=== PATIENT | female | born 1935 | race African-American/Black ===

== ENCOUNTER 2020-08-31 19:01 | Inpatient (IN) | payer OTHER ==
[~2020-08-31] VITALS: Ht 160 cm; Wt 82.1 kg
--- NOTE | ~2020-08-31 | EMS ---
[facility] [address] [place] [address] EMS Patient Care Report Name: ADRIEL HOLBROOK Room #: 353-P ADM IN M.R.#: [id number] Admission: 08/31/20 Attend Phys: Justine King Discharge: Date of : 39 Report #: [id number] THIS REPORT FOR: //name// Report Transmitted: 08/31/2020 23:37 EMS Care Summary [place], [place]/[facility] Incident [id number] @ 08/31/2020 18:33 Incident Location [facility] ZACKARY [place] 5 Patient ADRIEL HOLBROOK Female, 85 Years 1935 Patient Address [address] [place] [id number] Patient History Congestive Heart Failure (CHF),Dementia,Hypertension (HTN),Kidney/Renal Failure,Gastro-Esophageal Reflux Disease (GERD),End Stage Renal Disease (ESRD),Depression,Anemia,Dysphagia,Dialysis, Patient Allergies Morphine,Dilaudid,Lisinopril, Patient Medications Atorvastatin, Thiamine, Heparin, Zoloft, Melatonin, Potassium, Tramadol, Famotidine, Acetaminophen, Zinc, Folic acid, Ascorbic Acid, Disposition Transported No Lights/[place] Dispatch Reason Chest Pain (Non-Traumatic) Transported To [facility] Narrative Upon arrival, P36 on the scene. Pt was reported to have come back from dialysis and now is altered from what is normal for her. Pt daughter and NH staff said she is normally talkative, alert to herself and people around her. 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 They request transport to [facility] ER for further eval & tx. Pt moved to the EMS cot and loaded into the ambulance w/o incident. Vitals obtained x 2. 4 Lead and D-stick. En route: no changes. RR to ER. Arrived: pt taken to ER and moved to their bed w/o incident. Pt care & report to ER staff. Initial Vitals @18:50P: 100,SpO2: 65, @18:52SpO2: 83, @18:51P: 120,R: 24,BP: 106/59,Pain: 0/10,GCS: 10,SpO2: 90,Revised Trauma: 11, @18:57SpO2: 80, @18:56SpO2: 95, @18:54P: 36,SpO2: 99, @18:58P: 111,R: 18,BP: 117/61,Pain: 0/10,GCS: 10,Glucose: 164,SpO2: 97,Revised Trauma: 11,TX Suspected: false Assessments @18:44MENTAL:Confused,Other,SKIN:HEENT:Eyes: Right Pupil: 3-mm,Eyes: Left Pupil: 3-mm,LUNG SOUNDS:ABDOMEN:PELVIS//GI:EXTREMITIES:Left Arm: No Abnormalities,Right Arm: No Abnormalities,Left Leg: No Abnormalities,Right Leg: No Abnormalities,PULSE:NEURO:No Abnormalities, Impression Altered Mental Status Procedures @18:44ALS AssessmentResponse: UnchangedSucceeded@18:523-Lead ECGResponse: UnchangedSucceeded@18:48StretcherResponse: Unchanged@PTAOxygen FlowRate: 4 Device: Nasal Cannula (NC) Response: ImprovedSucceeded Timeline BOOKIE,Oxygen FlowRate: 4 Device: Nasal Cannula (NC) Response: ImprovedSucceeded, 18:32,Call Received 18:32,Dispatch Notified 18:33,Dispatched 18:33,En Route 18:42,On Scene 18:44,At Patient 18:44,ALS Assessment,Response: UnchangedSucceeded, 18:48,Stretcher,Response: Unchanged 18:50,BP: / M,PULSE: 100,RR: R,SPO2: 65 Ox,ETCO2: ,BG: ,PAIN: ,GCS: , 18:51,BP: 106/59 M,PULSE: 120,RR: 24 R,SPO2: 90 Ox,ETCO2: ,BG: ,PAIN: 0,GCS: 10, 18:52,3-Lead ECG,Response: UnchangedSucceeded, 18:52,BP: / M,PULSE: ,RR: R,SPO2: 83 Ox,ETCO2: ,BG: ,PAIN: ,GCS: , 18:54,Depart Scene 18:54,BP: / M,PULSE: 36,RR: R,SPO2: 99 Ox,ETCO2: ,BG: ,PAIN: ,GCS: , [facility] [address] [place] [address] EMS Patient Care Report Name: SHERONADRIEL Room #: 353-P ADM IN M.R.#: [id number] Admission: 08/31/20 Attend Phys: Sriramklaudia Dereje Christine Discharge: Date of : 39 Report #: [id number] 18:56,BP: / M,PULSE: ,RR: R,SPO2: 95 Ox,ETCO2: ,BG: ,PAIN: ,GCS: , 18:57,BP: / M,PULSE: ,RR: R,SPO2: 80 Ox,ETCO2: ,BG: ,PAIN: ,GCS: , 18:57,At Destination 18:58,BP: 117/61 M,PULSE: 111,RR: 18 R,SPO2: 97 Ox,ETCO2: ,B,PAIN: 0,GCS: 10, 19:30,Call Closed Disclaimer v1.1 Copyright 2020 [employer] This EMS Care Summary contains data elements from the applicable legal record (which may be displayed differently). It is designed to provide pertinent information for the following purposes: continuity of care, clinical quality, and state data reporting. The complete legal record is available to ED staff and administrators of the receiving hospital in ES's Patient Tracker. All data is provided "as is."
[~2020-08-31 19:01] MED LIST: AMBIEN 5 MG TABL5 M1 PO; HYDROCODON-ACE1 EAC7 PO; PERCOCET 5-3251 EACH PO
[2020-08-31 19:02] VITALS: BP 125/86
[2020-08-31 19:33] LABS: ABSOLUTE NEUTROPHILS 8.6 thou/uL (1.4-8.2); BASOPHILS 0.9 % (0.0-2.0); HEMATOCRIT 29.7 % (37.0-47.0); HEMOGLOBIN 9.7 gm/dL (12.0-15.0); LYMPHOCYTES 16.3 % (24.0-44.0); MCH 32.6 pg (26.0-34.0); MCHC 32.5 g/dL (28.0-37.0); MCV 100.4 fL (80.0-100.0); MONOCYTES 12.1 % (1.0-8.0); PLATELET COUNT 135 thou/uL (150-400); POLYS 69.7 % (36.0-66.0); RBC 2.96 mil/uL (4.20-5.00); RDW 19.5 % (10.5-14.5); WBC 12.4 thou/uL (4.0-11.0)
[2020-08-31 19:43] LABS: CREATININE 1.2 mg/dL (0.6-1.0); POTASSIUM 3.7 mmol/L (3.5-5.1)
[2020-08-31 19:49] LABS: ALBUMIN 2.1 g/dL (3.4-5.0); TOTAL BILIRUBIN 0.3 mg/dL (0.2-1.0); TOTAL PROTEIN 6.2 g/dL (6.4-8.2)
[2020-08-31] MEDS ORDERED: ACETAMINOPHEN500 MG PER TUBE (20:52)
[2020-08-31] MEDS ORDERED: VITAMIN C250 MG PER TUBE (20:56)
[2020-08-31] MEDS ORDERED: LIPITOR40 MG PER TUBE (20:57)
[2020-08-31] MEDS ORDERED: FAMOTIDINE10 MG PER TUBE (20:58)
[2020-08-31] MEDS ORDERED: VANCOCIN 125 M125 M1 PER TUBE (20:59)
[2020-08-31] MEDS ORDERED: FOLIC ACID1 MG PER TUBE (21:00)
[2020-08-31] MEDS ORDERED: HEPARIN 5,5000 UNIT1 SUBQ (21:01)
[2020-08-31] MEDS ORDERED: MELATONIN5 MG PER TUBE (21:01)
[2020-08-31] MEDS ORDERED: POTASSIUM20 MEQ/15 PER TUBE (21:02)
[2020-08-31] MEDS ORDERED: TRAMADOL 50 MG50 MG PER TUBE (21:03)
[2020-08-31] MEDS ORDERED: B-1100 MG PER TUBE (21:03)
[2020-08-31] MEDS ORDERED: RENAL-VITE TAB0.8 MG PER TUBE (21:03)
[2020-08-31] MEDS ORDERED: ZOLOFT50 M1 PER TUBE (21:04)
[2020-08-31] MEDS ORDERED: ZINC30 M1 (21:04)
[2020-08-31 22:19] VITALS: BP 113/65
[2020-08-31 22:42] LABS: CHOLESTEROL 140 mg/dL (<200); HDL CHOLESTEROL 84 mg/dL (>40); LDL CHOLESTEROL 39 mg/dL (<100); TC:HDL 1.7 Ratio (Not establshd); TRIGLYCERIDE 89 mg/dL (<150); VLDL 18 mg/dL (<40)
[2020-08-31 22:44] LABS: SERUM ASSESSMENT Clear
[2020-08-31 23:06] VITALS: BP 93/75
[2020-08-31 23:55] VITALS: BP 123/69
[2020-09-01 04:17] VITALS: BP 126/52
--- NOTE | 2020-09-01 05:47 | NUR ---
ER ADMISSION ARRIVED VIA CART AND 02 AT 4L NASAL CANNULA WHICH IS HER BASELINE. INTERVENTIONS, CARE PLAN, AND MED REC COMPLETED. CONSULT TO RENAL TO BE CALLED IN THIS AM. WOUND PICTURES FROM L/R HEEL TAKEN AND WC CONSULT PLACED. HEEL PROTECTORS IN PLACE. PT IS NON AMBULATORY. RECORDS REQUEST TO [facility] WILL BE PLACED THIS AM ALSO. ISOLATION PRECAUTIONS FOR C-DIFF POSITIVE AND PT IS ON VANCO SINCE 08/21.
--- NOTE | 2020-09-01 05:51 | EKG ---
[place] [address] [facility] [place] [address] ELECTROCARDIOGRAM REPORT Name: ADRIEL HOLBROOK Room #: 353-P ADM IN M.R.#: [id number] Admission: 08/31/20 Attend Phys: Justine King Discharge: Date of : 39 Report #: [id number] [facility] ED Test Date: 2020-08-31 Test Time: 19:05:38 Pat Name: ADRIEL HOLBROOK Department: Room: 353 Gender: F Slumber Room Attendant: DANISH : 1935 Requested By: James Corona Order Number: [id number] MD: Duran Duncan Measurements Intervals [place] Rate: 115 P: 41 AL: 159 QRS: -24 QRSD: 75 T: 96 QT: 333 QTc: 461 Interpretive Statements Sinus tachycardia Borderline left axis deviation Low voltage, precordial leads Abnormal R-wave progression, late transition Nonspecific T abnormalities, lateral leads Baseline wander in lead(s) V5,V6 No previous ECG available for comparison Electronically Signed On 09-01-2020 5:51:06 CDT by Duran Duncan [email or web address] <ELECTRONICALLY SIGNED> By: Duran Duncan MD, [facility] 09/01/20 0551 [id number] 1905 Duran Duncan MD, [facility] /EPI
[2020-09-01 07:21] VITALS: BP 148/61
--- NOTE | 2020-09-01 08:36 | NUR ---
pt daughter Staci Roman,
--- NOTE | 2020-09-01 09:31 | NUR ---
INITIAL ASSESSMENT: Received consult. SW reviewed chart and spoke with nursing and attending physician. Pt was admitted from [facility] due to AMS. Pt had negative COVID test on 08/30. Pt is in isolation for c.diff. Pt with hx of dementia. [facility] spoke with pt's dtr, Staci, via phone. Introduced role of SW. Pt is currently in the skilled unit at [facility]. Pt was hospitalized at [facility] the second week in May. Pt was started on dialysis during the hospital stay. Pt's dtr states that pt becomes extremely weak during and after dialysis. Pt has been w/c bound and bed bound since that time. Pt's dtr confirms plan to return to [facility] SNF. SW informed pt's dtr that discharge will likely be tomorrow. Pt's dtr verbalized understanding. SW faxed clinical info to [facility] for review. [facility] is following to assist as needed with discharge planning.
[2020-09-01 09:59] LABS: CALCIUM 8.6 mg/dL (8.5-10.1); CREATININE 1.4 mg/dL (0.6-1.0); POTASSIUM 4.4 mmol/L (3.5-5.1)
--- NOTE | 2020-09-01 10:28 | NUR ---
Agree with current tube feed of nepro at 40ml/hr. If pt stops dialysis, then could change formula to jevity 1.5 at 50ml/hr.
[2020-09-01 20:00] VITALS: BP 137/62
[2020-09-02 03:51] VITALS: BP 122/57
--- NOTE | 2020-09-02 06:35 | NUR ---
PT IS NON VERBAL, AND CAN ONLY SHAKE HEAD YES OR NO. MEDICAL RECORDS FROM [facility] IN PT CHART. LOW LOSS AIR PUMP INSTALLED AND WORKING. Q2 TURNS AND TUBE FEEDING GOING AT 40ML. HOURLY ROUNDING AND ISOLATION PRECAUTIONS IN PLACE FOR CDIFF.
[2020-09-02 07:17] VITALS: BP 148/76
[2020-09-02 09:17] LABS: ALBUMIN 1.9 g/dL (3.4-5.0); CALCIUM 9.7 mg/dL (8.5-10.1); PHOSPHORUS 2.7 mg/dL (2.5-4.9); POTASSIUM 3.5 mmol/L (3.5-5.1)
[2020-09-02 09:18] LABS: CREATININE 2.4 mg/dL (0.6-1.0)
--- NOTE | 2020-09-02 12:26 | NUR ---
CARE ASSUMED AT 0700, PT ALERT TO SELF, NON VERBAL. ABLE TO FOLLOW SIMPLE COMMMANDS AND NOD YES OR NO. PT DENIES ANY PAIN, NAUSEA AND VOMITTING. CONTINUE TO BE ON ROOM AIR, NO SIGNS OF DISTRESS. PT PEGTUBE IN PLACE, NEPRO RUUNING PER ORDER. HOB 30 DEGREE HIGHER. WOUND CARE COMPLATED, PCITURES TAKEN. PT REPOSITION EVERY 2 HOURS. PT DAUGHTER CALLED AND UPDATED ABOUT PT CARE AND DISCHARGE. ANTICIPATING FOR D/C SOON. FALL PRECAUTIONS IN PLACE, WILL CONTINUE TO MONITOR
--- NOTE | 2020-09-02 13:34 | NUR ---
betsey s/w adrienne with [facility], she has arranged stretcher transportation for 1700. pt bedside rn, communicated time w/pt dtr, as dtr request a later time so she could visit w/pt prior to d/c. us made chart copy. rn provided with number/unit to call report.
--- NOTE | 2020-09-04 15:50 | HC ---
[facility] [place] [address] CONSULTATION Name: ADRIEL HOLBROOK Room #: 353-P [facility] IN M.R.#: [id number] Admission: 08/31/20 Attend Phys: Jon Gallo MD Discharge: 09/02/20 Date of : 39 Report #: [id number] THIS REPORT FOR: cc: Gadiel Valera MD, Christopher B. MD Althoff, Jeffrey R. MD ~ DOC #: [id number] Eduardo London MD DATE OF SERVICE: 09/01/2020 CHIEF COMPLAINT: Bilateral heel ulcers. HISTORY OF PRESENT ILLNESS: This is an 85-year-old female patient who was admitted from [facility] with confusion following dialysis. The patient is not able to provide any information about herself. She has had a previous stroke with aphasia. She was noted to have heel ulcers and I have been asked to see her in this regard. PAST MEDICAL HISTORY: Positive for end-stage renal disease requiring hemodialysis, history of dehydration, history of cerebrovascular accident as well as bilateral unstageable pressure ulcers to her heels. ALLERGIES: HYDROMORPHONE. MEDICATIONS: Includes acetaminophen, vitamin C, Lipitor, famotidine, vancomycin, folic acid, subcutaneous heparin, melatonin, potassium chloride, thiamine, tramadol, zinc, gluconate, and sertraline. SOCIAL HISTORY: Negative for alcohol or tobacco use. FAMILY HISTORY: Unknown. REVIEW OF SYSTEMS: Not obtainable due to the patient's aphasia. PHYSICAL EXAMINATION: VITAL SIGNS: The patient's vital signs at this time include temperature of 36.6, pulse 91, respirations 16, blood pressure 140/61. GENERAL: This is a chronically ill-appearing female patient who appears to be in no obvious distress. HEENT: Normocephalic. Nose and throat are clear. NECK: Supple. LUNGS: Clear. HEART: Regular rhythm without murmur. ABDOMEN: Soft. Bowel sounds are present. PELVIS: Sacral gluteal region demonstrates evidence of scarring and prior sacral ulceration appears to be closed at this time. [facility] [address] [place] [address] CONSULTATION Name: ADRIEL HOLBROOK Room #: 353-P [facility] IN M.R.#: [id number] Admission: 08/31/20 Attend Phys: Jon Gallo MD Discharge: 09/02/20 Date of : 39 Report #: [id number] EXTREMITIES: Lower extremities demonstrate trace edema. She has dry stable eschar to both heels. There is evidence of epithelialization and the skin is beginning to peel away at the edges. The remaining eschar is dry, stable and intact. I am able to easily palpate dorsalis pedis pulse on the right side. Very weak on the left, although the capillary refill is normal. NEUROLOGIC: The patient is awake and opens her eyes. She does not participate with additional neurological examination. LABORATORY STUDIES: Includes white blood cell count 12.4 with a hemoglobin of 9.7, hematocrit of 29.7. Sodium was 138, potassium 4.4, chloride 103, CO2 31, BUN 12, creatinine 1.4. Albumin is 2.0. CLINICAL IMPRESSION: 1. Unstageable pressure ulcerations, both heels. 2. Prior stage 3 pressure ulceration to the sacrum. 3. End-stage renal disease requiring hemodialysis. 4. History of stroke with expressive aphasia. 5. Severe protein-calorie malnutrition with albumin of 2.0. RECOMMENDATIONS: At this point in time, we will recommend Betadine paint to the dry eschar of the heels and then PRAFO boots for pressure prophylaxis. They can otherwise be left open to air as the eschar begins to peel away. Hopefully, we will continue to see improved epithelialization. We will recommend moisture barrier cream to the sacral-gluteal region. She will need q. 2 hour turning and positioning. She will need ____ pump on her bed. Aggressive nutritional support. Utilize feeding tube for nutrition as well as medications at this time. I appreciate being asked to see her in consultation. MD CAROLEE Guzman/SALMA/OSCAR <ELECTRONICALLY SIGNED> By: Eduardo London MD 09/04/20 1550 [id number] Eduardo London MD /nt
== END 2020-09-02 17:34 | DRG 682 ==
LOC: ER 19:01 → 3W 22:09 → EROBS 22:09 → 3W 23:07
PROVIDERS: Emergency Medicine; Hospitalist; Internal Medicine Nephrology; ADMIT Hospitalist; ATTEND Hospitalist
DX: I12.9 Hypertensive chronic kidney disease with stage 1 through stage 4 chronic kidney disease, or unspecified chronic kidney disease (principal); L89.153 Pressure ulcer of sacral region, stage 3; E43 Unspecified severe protein-calorie malnutrition; G93.41 Metabolic encephalopathy; R65.11 Systemic inflammatory response syndrome (SIRS) of non-infectious origin with acute organ dysfunction; R47.01 Aphasia; N18.6 End stage renal disease; L89.620 Pressure ulcer of left heel, unstageable; L89.610 Pressure ulcer of right heel, unstageable; Z20.822 Contact with and (suspected) exposure to COVID-19; E86.0 Dehydration; F32.9 Major depressive disorder, single episode, unspecified; K21.9 Gastro-esophageal reflux disease without esophagitis; M13.0 Polyarthritis, unspecified; M06.9 Rheumatoid arthritis, unspecified; G47.00 Insomnia, unspecified; G89.29 Other chronic pain; M54.9 Dorsalgia, unspecified; E78.5 Hyperlipidemia, unspecified; Z88.6 Allergy status to analgesic agent; Z88.8 Allergy status to other drugs, medicaments and biological substances; Z98.49 Cataract extraction status, unspecified eye; Z86.711 Personal history of pulmonary embolism; Z93.1 Gastrostomy status; Z68.32 Body mass index [BMI] 32.0-32.9, adult
CPT/HCPCS: 10080; 10879